=== PATIENT | female | born 1975 | race African-American/Black ===

== ENCOUNTER 2022-07-31 19:32 | Inpatient (IN) | payer MEDICARE ==
[~2022-07-31] VITALS: Ht 152.4 cm; Wt 133.8 kg
[2022-07-31 22:45] LABS: CLARITY URINE CLEAR (CLEAR); COLOR URINE YELLOW (YELLOW); KETONES URINE NEGATIVE (NEGATIVE); LEUKOCYTE ESTERASE URINE 3+ (NEGATIVE); NITRITE URINE NEGATIVE (NEGATIVE); OCCULT BLOOD URINE NEGATIVE (NEGATIVE); PH URINE 7.5 (4.5-8.0); PROTEIN URINE NEGATIVE (NEGATIVE); SPECIFIC GRAVITY URINE 1.007 (1.005-1.030)
[2022-07-31] MEDS ORDERED: CEPHALEXIN 250MG CAPSULE PO ONE (23:00)
[2022-07-31] MEDS: CEPHALEXIN 250MG CAPSULE PO NR (23:47)
[2022-08-01] MEDS: CEPHALEXIN 250MG CAPSULE PO NR (09:00)
[2022-08-01] MEDS ORDERED: ACETAMINOPHEN 325MG TABLET PO ONE (14:30)
[2022-08-01] MEDS ORDERED: CEPHALEXIN 250MG CAPSULE PO ONE (18:15)
[2022-08-02] MEDS ORDERED: HYDROCODONE/ACETAMINOPHEN 5/325MG TABLET PO ONE (05:30)
[2022-08-02] MEDS ORDERED: TOPIRAMATE 100MG TABLET PO STA (11:58)
[2022-08-02] MEDS ORDERED: LORAZEPAM 2MG/ML CPJ IM STA (11:58)
[2022-08-02] MEDS ORDERED: GABAPENTIN 400MG CAPSULE PO ONE (12:00)
[2022-08-02] MEDS ORDERED: ONDANSETRON HCL 4MG/2ML INJ IV PRN (12:15)
[2022-08-02 20:00] VITALS: BP 117/59
[2022-08-02] MEDS: LEVETIRACETAM 500MG TABLET PO SCH (21:00)
[2022-08-02 21:29] VITALS: BP 117/54
[2022-08-03] VITALS: BP 109/51
[2022-08-03] MEDS: GABAPENTIN 300MG CAPSULE PO SCH ×4 (00:45→21:53)
[2022-08-03 04:00] VITALS: BP 120/60
[2022-08-03] MEDS: ACETAMINOPHEN 325MG TABLET PO PRN (06:40)
[2022-08-03 08:00] VITALS: BP 115/77
[2022-08-03] MEDS: LEVETIRACETAM 500MG TABLET PO SCH ×3 (08:53→21:00)
[2022-08-03] MEDS ORDERED: CEFTRIAXONE 1 G PREMIX 50 ML IV SCH (10:15)
[2022-08-03 12:00] VITALS: BP 104/58
[2022-08-03] MEDS ORDERED: KETOROLAC 30MG/ML VIAL IV PRN (12:00)
[2022-08-03] MEDS: CEFTRIAXONE 1,000 MG in DEXTROSE 5% WATER 50 ML IV SCH (14:27)
[2022-08-03 15:55] LABS: BASOPHILS % 0.2 % (0.0-2.0); EOSINOPHILS % 2.1 % (0.0-5.0); HEMATOCRIT. 39.4 % (36.0-48.0); HEMOGLOBIN. 12.2 g/dL (12.0-16.0); LYMPHOCYTES % 25.4 % (20.0-50.0); MEAN CORPUSCULAR HEMOGLOBIN 26.8 pg (28.0-32.0); MEAN CORPUSCULAR VOLUME 86.2 fL (81.0-99.0); MEAN PLATELET VOLUME 11.2 fl (7.4-10.4); NEUTROPHILS % 63.3 % (40.0-76.0); PLATELET 190 x1000/uL (130-400); RED BLOOD CELL COUNT 4.57 mill/uL (4.2-5.4); RED CELL DISTRIBUTION WIDTH 17.2 % (11.6-14.6)
[2022-08-03 16:00] VITALS: BP 106/63
[2022-08-03 16:16] LABS: CHLORIDE 108 mEq/L (98-107)
[2022-08-03 20:00] VITALS: BP 110/60
[2022-08-03] MEDS ORDERED: MEDICATION NOT ON FORMULARY EA (Oxycodone Hcl/Acetaminophen (Oxycodone-Acetaminophen 10- PO PRN (20:00)
[2022-08-03] MEDS ORDERED: TOPI100T37 PO (20:07)
[2022-08-03] MEDS ORDERED: PRIM50TA5 PO (20:07)
[2022-08-03] MEDS ORDERED: DULO20CA18 PO (20:07)
[2022-08-03] MEDS ORDERED: ATOR20TA65 PO (20:07)
[2022-08-03] MEDS ORDERED: GABA800T97 PO (20:07)
[2022-08-03] MEDS ORDERED: DOCU-150 PO (20:07)
[2022-08-03] MEDS ORDERED: APIX2.5T PO (20:07)
[2022-08-03] MEDS ORDERED: OXYC1TAB12 PO (20:07)
[2022-08-03] MEDS ORDERED: NALOXONE HCL 0.4MG/ML VIAL IV PRN (20:45)
[2022-08-03] MEDS: TOPIRAMATE 100MG TABLET PO SCH (21:52)
[2022-08-03] MEDS: OXYCODONE HCL/ACETAMINOPHEN 5/325MG TABLET PO PRN (21:53)
[2022-08-03] MEDS: DOCUSATE SODIUM 100MG CAPSULE PO PRN (22:02)
[2022-08-04] VITALS: BP 99/48
[2022-08-04 04:00] VITALS: BP 94/41
[2022-08-04] MEDS: GABAPENTIN 300MG CAPSULE PO SCH ×3 (06:45→20:42)
[2022-08-04 08:00] VITALS: BP_SYST 92; BP_DIAS 48; BP_DIAS 8
[2022-08-04] MEDS: DULOXETINE HCL 20MG DR CAPSULE PO SCH ×2 (09:00→11:48)
[2022-08-04] MEDS ORDERED: DULOXETINE HCL 20MG DR CAPSULE PO SCH (09:00)
[2022-08-04] MEDS: PRIMIDONE 50MG TABLET PO SCH ×3 (09:00→18:08)
[2022-08-04] MEDS: LEVETIRACETAM 500MG TABLET PO SCH ×2 (09:00→20:43)
[2022-08-04] MEDS: APIXABAN 2.5 MG TABLET PO SCH ×2 (09:09→18:08)
[2022-08-04] MEDS: ATORVASTATIN CALCIUM 20MG TABLET PO SCH (09:09)
[2022-08-04] MEDS: TOPIRAMATE 100MG TABLET PO SCH ×2 (09:09→18:08)
[2022-08-04 12:00] VITALS: BP 104/46
[2022-08-04] MEDS: CEFTRIAXONE 1,000 MG in DEXTROSE 5% WATER 50 ML IV SCH (14:24)
[2022-08-04 16:00] VITALS: BP 104/46
[2022-08-04 20:00] VITALS: BP 116/51
[2022-08-04] MEDS: OXYCODONE HCL/ACETAMINOPHEN 5/325MG TABLET PO PRN (20:42)
[2022-08-05] VITALS: BP 98/48
[2022-08-05 04:00] VITALS: BP 105/58
[2022-08-05] MEDS: GABAPENTIN 300MG CAPSULE PO SCH ×3 (05:50→21:03)
[2022-08-05 08:00] VITALS: BP 125/72
[2022-08-05] MEDS ORDERED: LIDOCAINE HCL 1% 10 MG/ML 10ML VIAL ONE (09:51)
[2022-08-05] MEDS: DULOXETINE HCL 20MG DR CAPSULE PO SCH (10:11)
[2022-08-05] MEDS: TOPIRAMATE 100MG TABLET PO SCH ×2 (10:11→16:11)
[2022-08-05] MEDS: PRIMIDONE 50MG TABLET PO SCH ×2 (10:11→16:11)
[2022-08-05] MEDS: LEVETIRACETAM 500MG TABLET PO SCH ×2 (10:11→21:00)
[2022-08-05] MEDS: ATORVASTATIN CALCIUM 20MG TABLET PO SCH (10:13)
[2022-08-05] MEDS: APIXABAN 2.5 MG TABLET PO SCH ×2 (10:13→16:11)
[2022-08-05 12:00] VITALS: BP 110/52
[2022-08-05] MEDS: CEFTRIAXONE 1,000 MG in DEXTROSE 5% WATER 50 ML IV SCH (12:23)
[2022-08-05 16:00] VITALS: BP 96/60
[2022-08-05 20:00] VITALS: BP 99/48
[2022-08-05 22:03] LABS: BASOPHILS % 0.2 % (0.0-2.0); EOSINOPHILS % 2.9 % (0.0-5.0); HEMATOCRIT. 33.1 % (36.0-48.0); HEMOGLOBIN. 10.2 g/dL (12.0-16.0); LYMPHOCYTES % 31.5 % (20.0-50.0); MEAN CORPUSCULAR HEMOGLOBIN 26.9 pg (28.0-32.0); MEAN CORPUSCULAR VOLUME 87.7 fL (81.0-99.0); MEAN PLATELET VOLUME 11.3 fl (7.4-10.4); MONOCYTES % 10.8 % (2.0-8.0); NEUTROPHILS % 54.6 % (40.0-76.0); PLATELET 163 x1000/uL (130-400); RED BLOOD CELL COUNT 3.78 mill/uL (4.2-5.4); RED CELL DISTRIBUTION WIDTH 17.3 % (11.6-14.6)
[2022-08-05 22:07] LABS: CHLORIDE 105 mEq/L (98-107)
[2022-08-06] VITALS: BP 110/51
[2022-08-06 04:00] VITALS: BP 90/45
[2022-08-06] MEDS: GABAPENTIN 300MG CAPSULE PO SCH ×3 (06:00→21:29)
[2022-08-06 08:00] VITALS: BP 89/43
[2022-08-06] MEDS: LEVETIRACETAM 500MG TABLET PO SCH ×2 (09:00→21:29)
[2022-08-06] MEDS: ATORVASTATIN CALCIUM 20MG TABLET PO SCH (10:02)
[2022-08-06] MEDS: PRIMIDONE 50MG TABLET PO SCH ×2 (10:02→17:00)
[2022-08-06] MEDS: OXYCODONE HCL/ACETAMINOPHEN 5/325MG TABLET PO PRN ×2 (10:03→22:30)
[2022-08-06] MEDS: DULOXETINE HCL 20MG DR CAPSULE PO SCH (10:03)
[2022-08-06] MEDS: APIXABAN 2.5 MG TABLET PO SCH ×2 (10:03→17:00)
[2022-08-06] MEDS: TOPIRAMATE 100MG TABLET PO SCH ×2 (10:11→17:00)
[2022-08-06 12:00] VITALS: BP 96/48
[2022-08-06] MEDS: CEFTRIAXONE 1,000 MG in DEXTROSE 5% WATER 50 ML IV SCH (13:59)
[2022-08-06 14:40] VITALS: BP 109/61
[2022-08-06 15:25] LABS: BASOPHILS % 0.4 % (0.0-2.0); EOSINOPHILS % 3.5 % (0.0-5.0); HEMATOCRIT. 33.8 % (36.0-48.0); HEMOGLOBIN. 10.5 g/dL (12.0-16.0); MEAN CORPUSCULAR HEMOGLOBIN 26.7 pg (28.0-32.0); MEAN CORPUSCULAR VOLUME 85.8 fL (81.0-99.0); MEAN PLATELET VOLUME 11.1 fl (7.4-10.4); MONOCYTES % 14.6 % (2.0-8.0); NEUTROPHILS % 40.5 % (40.0-76.0); PLATELET 154 x1000/uL (130-400); RED BLOOD CELL COUNT 3.94 mill/uL (4.2-5.4); RED CELL DISTRIBUTION WIDTH 16.9 % (11.6-14.6)
[2022-08-06 15:35] LABS: CHLORIDE 106 mEq/L (98-107)
[2022-08-06 20:00] VITALS: BP 148/79
[2022-08-07] VITALS: BP 143/86
[2022-08-07] MEDS: GABAPENTIN 300MG CAPSULE PO SCH ×4 (05:40→21:46)
[2022-08-07 08:00] VITALS: BP 108/56
[2022-08-07] MEDS: PRIMIDONE 50MG TABLET PO SCH ×2 (08:23→16:57)
[2022-08-07] MEDS: DULOXETINE HCL 20MG DR CAPSULE PO SCH ×2 (08:23→08:35)
[2022-08-07] MEDS: DOCUSATE SODIUM 100MG CAPSULE PO PRN (08:23)
[2022-08-07] MEDS: LEVETIRACETAM 500MG TABLET PO SCH ×3 (08:23→21:43)
[2022-08-07] MEDS: TOPIRAMATE 100MG TABLET PO SCH ×2 (08:23→16:57)
[2022-08-07] MEDS: ATORVASTATIN CALCIUM 20MG TABLET PO SCH (08:23)
[2022-08-07] MEDS: APIXABAN 2.5 MG TABLET PO SCH ×2 (08:26→16:57)
[2022-08-07 12:00] VITALS: BP 109/57
[2022-08-07] MEDS: CEFTRIAXONE 1,000 MG in DEXTROSE 5% WATER 50 ML IV SCH (12:58)
[2022-08-07] MEDS: OXYCODONE HCL/ACETAMINOPHEN 5/325MG TABLET PO PRN ×2 (12:59→23:13)
[2022-08-07 16:00] VITALS: BP 108/59
[2022-08-07 20:00] VITALS: BP 112/52
[2022-08-08] VITALS: BP 102/55
[2022-08-08 04:00] VITALS: BP 105/58
[2022-08-08] MEDS: DOCUSATE SODIUM 100MG CAPSULE PO PRN (08:43)
[2022-08-08] MEDS: TOPIRAMATE 100MG TABLET PO SCH ×2 (08:44→19:48)
[2022-08-08] MEDS: APIXABAN 2.5 MG TABLET PO SCH ×2 (08:44→19:48)
[2022-08-08] MEDS: DULOXETINE HCL 20MG DR CAPSULE PO SCH (08:44)
[2022-08-08] MEDS: OXYCODONE HCL/ACETAMINOPHEN 5/325MG TABLET PO PRN (08:44)
[2022-08-08] MEDS: ATORVASTATIN CALCIUM 20MG TABLET PO SCH (08:44)
[2022-08-08] MEDS: GABAPENTIN 300MG CAPSULE PO SCH ×3 (08:44→21:32)
[2022-08-08] MEDS: PRIMIDONE 50MG TABLET PO SCH ×2 (08:44→19:48)
[2022-08-08] MEDS: CEFTRIAXONE 1,000 MG in DEXTROSE 5% WATER 50 ML IV SCH (12:38)
[2022-08-08] MEDS: DIPHENHYDRAMINE 50MG CAPSULE PO PRN ×2 (15:12→21:36)
[2022-08-08 21:52] VITALS: BP 116/59
[2022-08-09] MEDS: GABAPENTIN 300MG CAPSULE PO SCH ×3 (06:00→22:09)
[2022-08-09 08:00] VITALS: BP 129/79
[2022-08-09] MEDS: DULOXETINE HCL 20MG DR CAPSULE PO SCH (09:53)
[2022-08-09] MEDS: APIXABAN 2.5 MG TABLET PO SCH ×2 (09:54→17:34)
[2022-08-09] MEDS: ATORVASTATIN CALCIUM 20MG TABLET PO SCH (09:54)
[2022-08-09] MEDS: PRIMIDONE 50MG TABLET PO SCH (09:54)
[2022-08-09] MEDS: TOPIRAMATE 100MG TABLET PO SCH ×2 (09:54→17:34)
[2022-08-09 12:00] VITALS: BP 125/78
[2022-08-09] MEDS ORDERED: NALOXONE HCL 0.4MG/ML VIAL IV PRN (14:45)
[2022-08-09 16:00] VITALS: BP 127/61
[2022-08-09] MEDS ORDERED: ZOLP5TAB8 PO (17:54)
[2022-08-09] MEDS ORDERED: DIPH25TA23 PO (17:56)
[2022-08-09] MEDS ORDERED: ALPR2TAB97 PO (17:56)
[2022-08-09] MEDS ORDERED: MORP15TA54 PO (17:57)
[2022-08-09] MEDS ORDERED: POLY119P3 PO (17:58)
[2022-08-09] MEDS ORDERED: LUBI24CA5 PO (18:00)
[2022-08-09] MEDS: OXYCODONE HCL/ACETAMINOPHEN 5/325MG TABLET PO PRN (18:40)
[2022-08-09 20:00] VITALS: BP 115/67
[2022-08-09] MEDS: DIPHENHYDRAMINE 50MG CAPSULE PO PRN (23:25)
[2022-08-10] VITALS: BP 105/40
[2022-08-10] MEDS: OXYCODONE HCL/ACETAMINOPHEN 5/325MG TABLET PO PRN ×3 (03:11→22:16)
[2022-08-10 04:00] VITALS: BP 111/59
[2022-08-10] MEDS: GABAPENTIN 300MG CAPSULE PO SCH ×3 (05:31→22:12)
[2022-08-10 08:00] VITALS: BP 115/60
[2022-08-10] MEDS: DULOXETINE HCL 20MG DR CAPSULE PO SCH ×2 (09:00→09:14)
[2022-08-10] MEDS: APIXABAN 2.5 MG TABLET PO SCH ×2 (09:14→17:50)
[2022-08-10] MEDS: TOPIRAMATE 100MG TABLET PO SCH ×2 (09:14→17:50)
[2022-08-10] MEDS: ATORVASTATIN CALCIUM 20MG TABLET PO SCH (09:14)
[2022-08-10 12:00] VITALS: BP 118/50
[2022-08-10 16:00] VITALS: BP 118/67
[2022-08-10 20:00] VITALS: BP 110/59
[2022-08-11] VITALS: BP 122/72
[2022-08-11 04:00] VITALS: BP 103/57
[2022-08-11] MEDS: GABAPENTIN 300MG CAPSULE PO SCH ×3 (06:41→21:25)
[2022-08-11] MEDS: ATORVASTATIN CALCIUM 20MG TABLET PO SCH (09:11)
[2022-08-11] MEDS: TOPIRAMATE 100MG TABLET PO SCH ×2 (09:11→17:46)
[2022-08-11] MEDS: APIXABAN 2.5 MG TABLET PO SCH ×2 (09:11→17:46)
[2022-08-11] MEDS: DULOXETINE HCL 20MG DR CAPSULE PO SCH (09:11)
[2022-08-11 09:59] VITALS: BP 104/56
[2022-08-11 12:00] VITALS: BP 118/71
[2022-08-11] MEDS: OXYCODONE HCL/ACETAMINOPHEN 5/325MG TABLET PO PRN ×2 (13:53→20:57)
[2022-08-11 16:00] VITALS: BP 115/65
[2022-08-11 20:00] VITALS: BP 109/61
[2022-08-12] MEDS: GABAPENTIN 300MG CAPSULE PO SCH ×3 (06:00→13:43)
[2022-08-12 08:02] VITALS: BP 98/53
[2022-08-12] MEDS: DULOXETINE HCL 20MG DR CAPSULE PO SCH (09:15)
[2022-08-12] MEDS: ATORVASTATIN CALCIUM 20MG TABLET PO SCH (09:15)
[2022-08-12] MEDS: TOPIRAMATE 100MG TABLET PO SCH ×2 (09:15→17:50)
[2022-08-12] MEDS: APIXABAN 2.5 MG TABLET PO SCH ×2 (09:15→17:50)
[2022-08-12 12:30] VITALS: BP 102/55
[2022-08-12 16:21] VITALS: BP 100/48
[2022-08-12] MEDS: GABAPENTIN 400MG CAPSULE PO SCH ×2 (17:55→21:47)
[2022-08-12] MEDS: POLYETHYLENE GLYCOL 3350 (17GM) 1 DOSE PACK PO SCH (17:56)
[2022-08-12] MEDS: OXYCODONE HCL/ACETAMINOPHEN 5/325MG TABLET PO PRN (18:01)
[2022-08-12 20:00] VITALS: BP 107/57
[2022-08-12] MEDS: ZOLPIDEM TARTRATE 5MG TABLET PO PRN (21:54)
[2022-08-13] MEDS: GABAPENTIN 400MG CAPSULE PO SCH ×3 (06:47→21:57)
[2022-08-13] MEDS: OXYCODONE HCL/ACETAMINOPHEN 5/325MG TABLET PO PRN ×3 (07:17→21:59)
[2022-08-13] MEDS: ATORVASTATIN CALCIUM 20MG TABLET PO SCH (08:48)
[2022-08-13] MEDS: POLYETHYLENE GLYCOL 3350 (17GM) 1 DOSE PACK PO SCH (08:48)
[2022-08-13] MEDS: TOPIRAMATE 100MG TABLET PO SCH ×2 (08:48→17:45)
[2022-08-13] MEDS: APIXABAN 2.5 MG TABLET PO SCH ×2 (08:48→17:45)
[2022-08-13] MEDS ORDERED: DULOXETINE HCL 30MG DR CAPSULE PO SCH (09:00)
[2022-08-13] MEDS: ALPRAZOLAM 0.5 MG TABLET PO PRN (09:40)
[2022-08-13] MEDS: DULOXETINE HCL 30MG DR CAPSULE PO SCH (09:41)
[2022-08-13 12:00] VITALS: BP 105/70
[2022-08-13 16:00] VITALS: BP 119/56
[2022-08-13 20:00] VITALS: BP 111/42
[2022-08-13] MEDS: ZOLPIDEM TARTRATE 5MG TABLET PO PRN (21:59)
[2022-08-14] VITALS: BP 105/50
[2022-08-14 04:00] VITALS: BP 99/53
[2022-08-14] MEDS: GABAPENTIN 400MG CAPSULE PO SCH ×3 (06:24→22:48)
[2022-08-14] MEDS: OXYCODONE HCL/ACETAMINOPHEN 5/325MG TABLET PO PRN ×2 (06:53→15:13)
[2022-08-14 08:00] VITALS: BP 104/39
[2022-08-14 08:32] LABS: BASOPHILS % 0.2 % (0.0-2.0); EOSINOPHILS % 2.2 % (0.0-5.0); HEMATOCRIT. 34.7 % (36.0-48.0); LYMPHOCYTES % 33.7 % (20.0-50.0); MEAN CORPUSCULAR HEMOGLOBIN 27.1 pg (28.0-32.0); MEAN CORPUSCULAR VOLUME 85.7 fL (81.0-99.0); MEAN PLATELET VOLUME 11.3 fl (7.4-10.4); MONOCYTES % 11.2 % (2.0-8.0); NEUTROPHILS % 52.7 % (40.0-76.0); PLATELET 194 x1000/uL (130-400); RED BLOOD CELL COUNT 4.05 mill/uL (4.2-5.4); RED CELL DISTRIBUTION WIDTH 17.3 % (11.6-14.6)
[2022-08-14 08:49] LABS: CHLORIDE 108 mEq/L (98-107)
[2022-08-14] MEDS: ATORVASTATIN CALCIUM 20MG TABLET PO SCH (10:02)
[2022-08-14] MEDS: DULOXETINE HCL 30MG DR CAPSULE PO SCH (10:02)
[2022-08-14] MEDS: APIXABAN 2.5 MG TABLET PO SCH ×2 (10:02→16:57)
[2022-08-14] MEDS: POLYETHYLENE GLYCOL 3350 (17GM) 1 DOSE PACK PO SCH (10:02)
[2022-08-14] MEDS: TOPIRAMATE 100MG TABLET PO SCH ×2 (10:02→16:57)
[2022-08-14 12:00] VITALS: BP 114/68
[2022-08-14] MEDS ORDERED: NALOXONE HCL 0.4MG/ML VIAL IV PRN (15:00)
[2022-08-14] MEDS: ALPRAZOLAM 0.5 MG TABLET PO PRN (15:13)
[2022-08-14 16:00] VITALS: BP 133/73
[2022-08-14] MEDS ORDERED: VANCOMYCIN 1,750 MG in DEXT 5% WATER 500 ML IV NR (17:30)
[2022-08-14 20:00] VITALS: BP 112/63
[2022-08-15 04:00] VITALS: BP 111/62
[2022-08-15] MEDS: GABAPENTIN 400MG CAPSULE PO SCH ×3 (06:34→22:52)
[2022-08-15] MEDS: VANCOMYCIN 1G PREMIX 200 ML IV SCH ×3 (06:34→22:50)
[2022-08-15] MEDS: OXYCODONE HCL/ACETAMINOPHEN 5/325MG TABLET PO PRN ×3 (06:47→23:03)
[2022-08-15 08:00] VITALS: BP 102/55
[2022-08-15] MEDS: DOCUSATE SODIUM 100MG CAPSULE PO PRN (10:07)
[2022-08-15] MEDS: ALPRAZOLAM 0.5 MG TABLET PO PRN (10:07)
[2022-08-15] MEDS: TOPIRAMATE 100MG TABLET PO SCH ×2 (10:07→17:00)
[2022-08-15] MEDS: POLYETHYLENE GLYCOL 3350 (17GM) 1 DOSE PACK PO SCH (10:07)
[2022-08-15] MEDS: DULOXETINE HCL 30MG DR CAPSULE PO SCH (10:07)
[2022-08-15] MEDS: ATORVASTATIN CALCIUM 20MG TABLET PO SCH (10:07)
[2022-08-15] MEDS: APIXABAN 2.5 MG TABLET PO SCH ×2 (10:07→17:00)
[2022-08-15] MEDS: ACETAMINOPHEN 325MG TABLET PO PRN (11:41)
[2022-08-15 12:00] VITALS: BP 142/86
[2022-08-15 16:09] VITALS: BP 113/57
[2022-08-15 20:00] VITALS: BP 114/73
[2022-08-15] MEDS: ZOLPIDEM TARTRATE 5MG TABLET PO PRN (23:02)
[2022-08-16] VITALS: BP 122/67
[2022-08-16 04:00] VITALS: BP 98/44
[2022-08-16] MEDS: GABAPENTIN 400MG CAPSULE PO SCH ×3 (06:00→21:12)
[2022-08-16 08:05] LABS: CHLORIDE 109 mEq/L (98-107)
[2022-08-16] MEDS: VANCOMYCIN 1G PREMIX 200 ML IV SCH ×2 (09:35→21:11)
[2022-08-16] MEDS: ATORVASTATIN CALCIUM 20MG TABLET PO SCH (09:36)
[2022-08-16] MEDS: APIXABAN 2.5 MG TABLET PO SCH ×2 (09:36→18:06)
[2022-08-16] MEDS: DULOXETINE HCL 30MG DR CAPSULE PO SCH (09:36)
[2022-08-16] MEDS: TOPIRAMATE 100MG TABLET PO SCH ×2 (09:36→18:06)
[2022-08-16] MEDS: POLYETHYLENE GLYCOL 3350 (17GM) 1 DOSE PACK PO SCH (09:36)
[2022-08-16 12:00] VITALS: BP 132/80
[2022-08-16] MEDS: DOCUSATE SODIUM 100MG CAPSULE PO PRN (13:56)
[2022-08-16 16:00] VITALS: BP 110/61
[2022-08-16] MEDS: OXYCODONE HCL/ACETAMINOPHEN 5/325MG TABLET PO PRN (18:14)
[2022-08-16 20:00] VITALS: BP 138/66
[2022-08-16] MEDS: ZOLPIDEM TARTRATE 5MG TABLET PO PRN (23:10)
[2022-08-17] VITALS: BP 109/61
[2022-08-17 04:00] VITALS: BP 105/63
[2022-08-17 08:00] VITALS: BP 139/76
[2022-08-17] MEDS: GABAPENTIN 400MG CAPSULE PO SCH ×3 (09:05→21:26)
[2022-08-17] MEDS: VANCOMYCIN 1G PREMIX 200 ML IV SCH ×2 (09:05→22:37)
[2022-08-17] MEDS: ATORVASTATIN CALCIUM 20MG TABLET PO SCH (09:05)
[2022-08-17] MEDS: TOPIRAMATE 100MG TABLET PO SCH ×2 (09:06→18:10)
[2022-08-17] MEDS: DULOXETINE HCL 30MG DR CAPSULE PO SCH (09:06)
[2022-08-17] MEDS: APIXABAN 2.5 MG TABLET PO SCH ×2 (09:06→18:10)
[2022-08-17] MEDS: OXYCODONE HCL/ACETAMINOPHEN 5/325MG TABLET PO PRN ×2 (09:07→18:11)
[2022-08-17] MEDS: POLYETHYLENE GLYCOL 3350 (17GM) 1 DOSE PACK PO SCH (09:07)
[2022-08-17 12:00] VITALS: BP 125/57
[2022-08-17 16:00] VITALS: BP 115/59
[2022-08-17 20:00] VITALS: BP 112/41
[2022-08-17] MEDS: ZOLPIDEM TARTRATE 5MG TABLET PO PRN (22:37)
[2022-08-18] VITALS: BP 106/52
[2022-08-18] MEDS: OXYCODONE HCL/ACETAMINOPHEN 5/325MG TABLET PO PRN ×4 (00:15→20:23)
[2022-08-18] MEDS: GABAPENTIN 400MG CAPSULE PO SCH ×3 (05:31→20:23)
[2022-08-18] MEDS: APIXABAN 2.5 MG TABLET PO SCH ×2 (10:13→18:04)
[2022-08-18] MEDS: DULOXETINE HCL 30MG DR CAPSULE PO SCH (10:13)
[2022-08-18] MEDS: VANCOMYCIN 1G PREMIX 200 ML IV SCH ×2 (10:13→21:07)
[2022-08-18] MEDS: POLYETHYLENE GLYCOL 3350 (17GM) 1 DOSE PACK PO SCH (10:14)
[2022-08-18] MEDS: TOPIRAMATE 100MG TABLET PO SCH ×2 (10:14→18:03)
[2022-08-18] MEDS: ATORVASTATIN CALCIUM 20MG TABLET PO SCH (10:14)
[2022-08-18 12:00] VITALS: BP 141/78
[2022-08-18 16:00] VITALS: BP 141/93
[2022-08-18] MEDS: ZOLPIDEM TARTRATE 5MG TABLET PO PRN (20:30)
[2022-08-19] VITALS: BP 105/56
[2022-08-19] MEDS: OXYCODONE HCL/ACETAMINOPHEN 5/325MG TABLET PO PRN ×3 (05:48→16:09)
[2022-08-19] MEDS: GABAPENTIN 400MG CAPSULE PO SCH ×3 (06:25→22:25)
[2022-08-19 08:00] VITALS: BP 133/68
[2022-08-19] MEDS: TOPIRAMATE 100MG TABLET PO SCH ×2 (09:08→18:48)
[2022-08-19] MEDS: DULOXETINE HCL 30MG DR CAPSULE PO SCH (09:08)
[2022-08-19] MEDS: ATORVASTATIN CALCIUM 20MG TABLET PO SCH ×2 (09:08→22:26)
[2022-08-19] MEDS: VANCOMYCIN 1G PREMIX 200 ML IV SCH (09:08)
[2022-08-19] MEDS: DOCUSATE SODIUM 100MG CAPSULE PO PRN (09:09)
[2022-08-19] MEDS: POLYETHYLENE GLYCOL 3350 (17GM) 1 DOSE PACK PO SCH (09:09)
[2022-08-19 12:00] VITALS: BP 139/78
[2022-08-19] MEDS ORDERED: CAPSAICIN 0.025% CREAM 60GM TOP PRN (12:00)
[2022-08-19] MEDS ORDERED: LIDOCAINE HCL 1% 10 MG/ML 10ML VIAL ONE (12:49)
[2022-08-19] MEDS ORDERED: BACLOFEN 10MG TABLET PO SCH (14:00)
[2022-08-19 16:00] VITALS: BP 132/77
[2022-08-19] MEDS: APIXABAN 2.5 MG TABLET PO SCH (18:48)
[2022-08-19 20:00] VITALS: BP 142/77
[2022-08-19] MEDS: BACLOFEN 10MG TABLET PO SCH (20:12)
[2022-08-19] MEDS ORDERED: PRIMIDONE 50MG TABLET PO SCH (21:00)
[2022-08-19] MEDS: LAMOTRIGINE 25MG TABLET PO SCH (21:15)
[2022-08-19] MEDS: ZOLPIDEM TARTRATE 5MG TABLET PO PRN (22:21)
[2022-08-19] MEDS: MORPHINE SULFATE 15MG TABLET SR PO SCH (22:24)
[2022-08-19] MEDS: PRIMIDONE 50MG TABLET PO SCH (22:26)
[2022-08-19] MEDS: SULFAMETHOXAZOLE/TRIMETHOPRIM 800/160MG TABLET PO SCH (22:27)
[2022-08-20] MEDS: BACLOFEN 10MG TABLET PO SCH ×5 (06:21→20:44)
[2022-08-20] MEDS: GABAPENTIN 400MG CAPSULE PO SCH ×5 (06:21→22:40)
[2022-08-20 08:00] VITALS: BP 102/54
[2022-08-20] MEDS: MORPHINE SULFATE 15MG TABLET SR PO SCH ×2 (09:00→20:52)
[2022-08-20] MEDS: APIXABAN 2.5 MG TABLET PO SCH ×2 (10:06→18:39)
[2022-08-20] MEDS: LAMOTRIGINE 25MG TABLET PO SCH (10:07)
[2022-08-20] MEDS: DULOXETINE HCL 30MG DR CAPSULE PO SCH (10:07)
[2022-08-20] MEDS: TOPIRAMATE 100MG TABLET PO SCH ×2 (10:08→18:39)
[2022-08-20] MEDS: PRIMIDONE 50MG TABLET PO SCH ×2 (10:10→20:45)
[2022-08-20] MEDS: SULFAMETHOXAZOLE/TRIMETHOPRIM 800/160MG TABLET PO SCH ×2 (10:13→20:43)
[2022-08-20] MEDS: POLYETHYLENE GLYCOL 3350 (17GM) 1 DOSE PACK PO SCH (10:13)
[2022-08-20] MEDS: OXYCODONE HCL/ACETAMINOPHEN 5/325MG TABLET PO PRN ×2 (10:20→18:56)
[2022-08-20 12:00] VITALS: BP 108/65
[2022-08-20 16:00] VITALS: BP 135/72
[2022-08-20 17:35] VITALS: BP 117/78
[2022-08-20] MEDS: LORAZEPAM 2MG/ML CPJ IV PRN (17:57)
[2022-08-20] MEDS: ZOLPIDEM TARTRATE 5MG TABLET PO PRN (22:52)
[2022-08-21] MEDS: BACLOFEN 10MG TABLET PO SCH ×3 (03:39→22:03)
[2022-08-21] MEDS: GABAPENTIN 400MG CAPSULE PO SCH ×3 (06:25→22:04)
[2022-08-21] MEDS: OXYCODONE HCL/ACETAMINOPHEN 5/325MG TABLET PO PRN ×2 (06:35→17:14)
[2022-08-21 08:00] VITALS: BP 103/56
[2022-08-21 08:12] LABS: HEMATOCRIT 35.4 % (36.0-48.0); HEMOGLOBIN 11.1 g/dL (12.0-16.0); MEAN CORPUSCULAR HEMOGLOBIN 26.9 pg (28.0-32.0); MEAN CORPUSCULAR VOLUME 85.6 fL (81.0-99.0); PLATELET 195 x1000/uL (130-400); RED BLOOD CELL COUNT 4.13 mill/uL (4.2-5.4); RED CELL DISTRIBUTION WIDTH 17.7 % (11.6-14.6)
[2022-08-21 08:23] LABS: CHLORIDE 103 mEq/L (98-107)
[2022-08-21] MEDS: LAMOTRIGINE 25MG TABLET PO SCH (09:00)
[2022-08-21] MEDS: POLYETHYLENE GLYCOL 3350 (17GM) 1 DOSE PACK PO SCH (10:42)
[2022-08-21] MEDS: DULOXETINE HCL 30MG DR CAPSULE PO SCH (10:42)
[2022-08-21] MEDS: PRIMIDONE 50MG TABLET PO SCH ×2 (10:43→22:04)
[2022-08-21] MEDS: SULFAMETHOXAZOLE/TRIMETHOPRIM 800/160MG TABLET PO SCH ×2 (10:43→22:04)
[2022-08-21] MEDS: ATORVASTATIN CALCIUM 20MG TABLET PO SCH (10:43)
[2022-08-21] MEDS: TOPIRAMATE 100MG TABLET PO SCH ×2 (10:44→17:14)
[2022-08-21] MEDS: APIXABAN 2.5 MG TABLET PO SCH ×2 (10:44→17:14)
[2022-08-21] MEDS: MORPHINE SULFATE 15MG TABLET SR PO SCH ×2 (10:48→22:09)
[2022-08-21 12:00] VITALS: BP 104/68
[2022-08-21 16:00] VITALS: BP 119/73
[2022-08-21] MEDS: LORAZEPAM 2MG/ML CPJ IV PRN (17:06)
[2022-08-21] MEDS: ZOLPIDEM TARTRATE 5MG TABLET PO PRN (22:19)
[2022-08-22] MEDS: BACLOFEN 10MG TABLET PO SCH ×3 (04:00→20:36)
[2022-08-22] MEDS: GABAPENTIN 400MG CAPSULE PO SCH ×3 (06:07→21:11)
[2022-08-22 06:20] VITALS: BP 103/58
[2022-08-22] MEDS: OXYCODONE HCL/ACETAMINOPHEN 5/325MG TABLET PO PRN ×2 (06:24→14:39)
[2022-08-22] MEDS: MORPHINE SULFATE 15MG TABLET SR PO SCH ×2 (09:00→20:41)
[2022-08-22] MEDS: TOPIRAMATE 100MG TABLET PO SCH ×2 (09:00→17:41)
[2022-08-22] MEDS: PRIMIDONE 50MG TABLET PO SCH ×2 (09:00→21:47)
[2022-08-22] MEDS: LAMOTRIGINE 25MG TABLET PO SCH (09:00)
[2022-08-22] MEDS: SULFAMETHOXAZOLE/TRIMETHOPRIM 800/160MG TABLET PO SCH ×2 (09:00→20:36)
[2022-08-22] MEDS: DULOXETINE HCL 30MG DR CAPSULE PO SCH (09:00)
[2022-08-22] MEDS: POLYETHYLENE GLYCOL 3350 (17GM) 1 DOSE PACK PO SCH (09:00)
[2022-08-22] MEDS: ATORVASTATIN CALCIUM 20MG TABLET PO SCH (09:00)
[2022-08-22] MEDS: APIXABAN 2.5 MG TABLET PO SCH ×2 (09:00→17:41)
[2022-08-22 11:04] VITALS: BP 109/60
[2022-08-22 12:33] VITALS: BP 130/72
[2022-08-22 16:26] VITALS: BP 120/63
[2022-08-22 20:00] VITALS: BP 106/62
[2022-08-22] MEDS: ZOLPIDEM TARTRATE 5MG TABLET PO PRN (20:52)
[2022-08-23] VITALS: BP 101/54
[2022-08-23] MEDS: OXYCODONE HCL/ACETAMINOPHEN 5/325MG TABLET PO PRN ×3 (04:53→18:30)
[2022-08-23] MEDS: GABAPENTIN 400MG CAPSULE PO SCH ×3 (04:53→20:36)
[2022-08-23] MEDS: BACLOFEN 10MG TABLET PO SCH ×3 (04:53→20:35)
[2022-08-23 08:00] VITALS: BP 108/60
[2022-08-23] MEDS: ATORVASTATIN CALCIUM 20MG TABLET PO SCH (08:46)
[2022-08-23] MEDS: PRIMIDONE 50MG TABLET PO SCH ×2 (08:46→20:36)
[2022-08-23] MEDS: SULFAMETHOXAZOLE/TRIMETHOPRIM 800/160MG TABLET PO SCH ×2 (08:46→20:36)
[2022-08-23] MEDS: DULOXETINE HCL 30MG DR CAPSULE PO SCH (08:46)
[2022-08-23] MEDS: APIXABAN 2.5 MG TABLET PO SCH ×2 (08:46→17:42)
[2022-08-23] MEDS: TOPIRAMATE 100MG TABLET PO SCH ×2 (08:46→17:43)
[2022-08-23] MEDS: LAMOTRIGINE 25MG TABLET PO SCH (08:47)
[2022-08-23] MEDS: MORPHINE SULFATE 15MG TABLET SR PO SCH ×2 (08:48→20:35)
[2022-08-23] MEDS: POLYETHYLENE GLYCOL 3350 (17GM) 1 DOSE PACK PO SCH (08:54)
[2022-08-23 12:00] VITALS: BP 100/58
[2022-08-23 16:00] VITALS: BP_SYST 113; BP_SYST 126; BP_DIAS 65; BP_DIAS 80
[2022-08-23 20:00] VITALS: BP 103/59
[2022-08-24] MEDS: OXYCODONE HCL/ACETAMINOPHEN 5/325MG TABLET PO PRN (03:48)
[2022-08-24] MEDS: BACLOFEN 10MG TABLET PO SCH ×3 (03:48→21:27)
[2022-08-24] MEDS: GABAPENTIN 400MG CAPSULE PO SCH ×3 (07:01→22:00)
[2022-08-24 08:00] VITALS: BP 114/73
[2022-08-24] MEDS: POLYETHYLENE GLYCOL 3350 (17GM) 1 DOSE PACK PO SCH (09:00)
[2022-08-24] MEDS: SULFAMETHOXAZOLE/TRIMETHOPRIM 800/160MG TABLET PO SCH ×2 (10:09→21:26)
[2022-08-24] MEDS: DULOXETINE HCL 30MG DR CAPSULE PO SCH (10:09)
[2022-08-24] MEDS: FUROSEMIDE 20MG TABLET PO SCH ×2 (10:09→17:00)
[2022-08-24] MEDS: LAMOTRIGINE 25MG TABLET PO SCH (10:09)
[2022-08-24] MEDS: TOPIRAMATE 100MG TABLET PO SCH ×2 (10:09→21:27)
[2022-08-24] MEDS: APIXABAN 2.5 MG TABLET PO SCH ×2 (10:09→21:27)
[2022-08-24] MEDS: PRIMIDONE 50MG TABLET PO SCH ×2 (10:09→21:27)
[2022-08-24] MEDS: ATORVASTATIN CALCIUM 20MG TABLET PO SCH (10:09)
[2022-08-24] MEDS: MORPHINE SULFATE 15MG TABLET SR PO SCH ×2 (10:10→20:43)
[2022-08-24 12:00] VITALS: BP 165/71
[2022-08-24] MEDS ORDERED: SUCCINYLCHOLINE CHLORIDE 200MG/10ML IV ONE (15:59)
[2022-08-24] MEDS ORDERED: MIDAZOLAM HCL 2 MG/2 ML VIAL ONE (15:59)
[2022-08-24 16:00] VITALS: BP 137/81
[2022-08-24] MEDS ORDERED: KETAMINE HCL 50 MG/ML 10ML ONE (16:01)
[2022-08-24] MEDS ORDERED: PROPOFOL 200MG/20ML VIAL IV ONE (17:12)
[2022-08-24] MEDS ORDERED: LORAZEPAM 2MG/ML CPJ IV NR (18:28)
[2022-08-24 20:00] VITALS: BP 132/76
[2022-08-25] VITALS: BP 93/48
[2022-08-25] MEDS: BACLOFEN 10MG TABLET PO SCH ×3 (03:27→21:14)
[2022-08-25] MEDS ORDERED: MORPHINE SULFATE 15MG TABLET SR PO SCH (03:45)
[2022-08-25 04:00] VITALS: BP 110/61
[2022-08-25] MEDS ORDERED: LORAZEPAM 1MG TABLET PO PRN (04:30)
[2022-08-25] MEDS: GABAPENTIN 400MG CAPSULE PO SCH ×3 (05:07→21:13)
[2022-08-25 08:00] VITALS: BP 100/52
[2022-08-25] MEDS: POLYETHYLENE GLYCOL 3350 (17GM) 1 DOSE PACK PO SCH (09:00)
[2022-08-25 12:00] VITALS: BP 100/54
[2022-08-25] MEDS: FUROSEMIDE 20MG TABLET PO SCH ×2 (12:55→19:15)
[2022-08-25] MEDS: DULOXETINE HCL 30MG DR CAPSULE PO SCH (12:55)
[2022-08-25] MEDS: SULFAMETHOXAZOLE/TRIMETHOPRIM 800/160MG TABLET PO SCH ×2 (12:55→21:13)
[2022-08-25] MEDS: LAMOTRIGINE 25MG TABLET PO SCH (12:55)
[2022-08-25] MEDS: APIXABAN 2.5 MG TABLET PO SCH ×2 (12:56→19:15)
[2022-08-25] MEDS: TOPIRAMATE 100MG TABLET PO SCH ×2 (12:56→19:15)
[2022-08-25] MEDS: MORPHINE SULFATE 15MG TABLET SR PO SCH ×2 (12:58→21:15)
[2022-08-25 16:00] VITALS: BP 100/56
[2022-08-25 20:00] VITALS: BP 118/62
[2022-08-25] MEDS: ATORVASTATIN CALCIUM 20MG TABLET PO SCH (21:14)
[2022-08-26] MEDS: BACLOFEN 10MG TABLET PO SCH ×3 (04:00→21:04)
[2022-08-26] MEDS: GABAPENTIN 400MG CAPSULE PO SCH ×3 (06:36→21:12)
[2022-08-26 08:00] VITALS: BP 103/55
[2022-08-26] MEDS: POLYETHYLENE GLYCOL 3350 (17GM) 1 DOSE PACK PO SCH (09:47)
[2022-08-26] MEDS: DULOXETINE HCL 30MG DR CAPSULE PO SCH (09:47)
[2022-08-26] MEDS: APIXABAN 2.5 MG TABLET PO SCH ×2 (09:47→18:05)
[2022-08-26] MEDS: MORPHINE SULFATE 15MG TABLET SR PO SCH ×2 (09:48→21:05)
[2022-08-26] MEDS: FUROSEMIDE 20MG TABLET PO SCH ×2 (09:48→18:05)
[2022-08-26] MEDS: TOPIRAMATE 100MG TABLET PO SCH ×2 (09:48→18:05)
[2022-08-26] MEDS: LAMOTRIGINE 25MG TABLET PO SCH (09:48)
[2022-08-26] MEDS: SULFAMETHOXAZOLE/TRIMETHOPRIM 800/160MG TABLET PO SCH ×2 (09:48→21:04)
[2022-08-26 12:00] VITALS: BP 107/59
[2022-08-26 16:00] VITALS: BP 112/64
[2022-08-26] MEDS: OXYCODONE HCL/ACETAMINOPHEN 5/325MG TABLET PO PRN (18:08)
[2022-08-26 20:00] VITALS: BP 118/61
[2022-08-26] MEDS: DOCUSATE SODIUM 100MG CAPSULE PO PRN (21:04)
[2022-08-26] MEDS: ATORVASTATIN CALCIUM 20MG TABLET PO SCH (21:04)
[2022-08-27] VITALS: BP 114/57
[2022-08-27 04:00] VITALS: BP 129/68
[2022-08-27] MEDS: GABAPENTIN 400MG CAPSULE PO SCH ×3 (05:11→21:03)
[2022-08-27] MEDS: BACLOFEN 10MG TABLET PO SCH ×3 (05:11→21:03)
[2022-08-27 08:00] VITALS: BP 106/62
[2022-08-27] MEDS: SULFAMETHOXAZOLE/TRIMETHOPRIM 800/160MG TABLET PO SCH ×2 (08:16→21:03)
[2022-08-27] MEDS: LAMOTRIGINE 25MG TABLET PO SCH (08:16)
[2022-08-27] MEDS: POLYETHYLENE GLYCOL 3350 (17GM) 1 DOSE PACK PO SCH (08:16)
[2022-08-27] MEDS: TOPIRAMATE 100MG TABLET PO SCH ×2 (08:16→17:30)
[2022-08-27] MEDS: APIXABAN 2.5 MG TABLET PO SCH ×2 (08:17→17:30)
[2022-08-27] MEDS: MORPHINE SULFATE 15MG TABLET SR PO SCH ×2 (08:17→21:04)
[2022-08-27] MEDS: DULOXETINE HCL 30MG DR CAPSULE PO SCH (08:17)
[2022-08-27] MEDS: FUROSEMIDE 20MG TABLET PO SCH ×2 (08:17→17:30)
[2022-08-27] MEDS: CLOTRIMAZOLE 1% CREAM 15GM TOP SCH (08:18)
[2022-08-27 12:00] VITALS: BP 138/90
[2022-08-27 16:35] VITALS: BP 101/54
[2022-08-27 20:00] VITALS: BP 95/50
[2022-08-27] MEDS: DOCUSATE SODIUM 100MG CAPSULE PO PRN (21:05)
[2022-08-27] MEDS: ATORVASTATIN CALCIUM 20MG TABLET PO SCH (21:05)
[2022-08-28] VITALS: BP 108/58
[2022-08-28 04:00] VITALS: BP 115/60
[2022-08-28] MEDS: GABAPENTIN 400MG CAPSULE PO SCH ×3 (05:22→21:41)
[2022-08-28] MEDS: BACLOFEN 10MG TABLET PO SCH ×3 (05:22→20:46)
[2022-08-28 08:00] VITALS: BP 108/54
[2022-08-28 08:44] LABS: BASOPHILS % 0.3 % (0.0-2.0); EOSINOPHILS % 2.3 % (0.0-5.0); HEMATOCRIT. 32.6 % (36.0-48.0); HEMOGLOBIN. 10.1 g/dL (12.0-16.0); LYMPHOCYTES % 34.5 % (20.0-50.0); MEAN CORPUSCULAR HEMOGLOBIN 26.9 pg (28.0-32.0); MEAN CORPUSCULAR VOLUME 87.2 fL (81.0-99.0); MEAN PLATELET VOLUME 10.7 fl (7.4-10.4); MONOCYTES % 7.9 % (2.0-8.0); PLATELET 216 x1000/uL (130-400); RED BLOOD CELL COUNT 3.74 mill/uL (4.2-5.4); RED CELL DISTRIBUTION WIDTH 17.8 % (11.6-14.6)
[2022-08-28 09:02] LABS: CHLORIDE 106 mEq/L (98-107)
[2022-08-28] MEDS: APIXABAN 2.5 MG TABLET PO SCH ×2 (11:03→17:20)
[2022-08-28] MEDS: TOPIRAMATE 100MG TABLET PO SCH ×2 (11:03→17:20)
[2022-08-28] MEDS: MORPHINE SULFATE 15MG TABLET SR PO SCH ×2 (11:03→21:09)
[2022-08-28] MEDS: DULOXETINE HCL 30MG DR CAPSULE PO SCH (11:04)
[2022-08-28] MEDS: FUROSEMIDE 20MG TABLET PO SCH ×2 (11:04→17:20)
[2022-08-28] MEDS: SULFAMETHOXAZOLE/TRIMETHOPRIM 800/160MG TABLET PO SCH ×2 (11:04→21:07)
[2022-08-28] MEDS: POLYETHYLENE GLYCOL 3350 (17GM) 1 DOSE PACK PO SCH (11:05)
[2022-08-28] MEDS: LAMOTRIGINE 25MG TABLET PO SCH (11:05)
[2022-08-28] MEDS ORDERED: BACL20TA PO (11:21)
[2022-08-28 12:00] VITALS: BP 138/71
[2022-08-28 16:00] VITALS: BP 139/62
[2022-08-28] MEDS: CLOTRIMAZOLE 1% CREAM 15GM TOP SCH (17:19)
[2022-08-28 20:00] VITALS: BP 123/58
[2022-08-28] MEDS: ATORVASTATIN CALCIUM 20MG TABLET PO SCH (21:06)
[2022-08-29] MEDS: BACLOFEN 10MG TABLET PO SCH ×3 (06:02→21:43)
[2022-08-29] MEDS: GABAPENTIN 400MG CAPSULE PO SCH ×3 (06:03→21:43)
[2022-08-29 08:00] VITALS: BP 120/69
[2022-08-29] MEDS: DULOXETINE HCL 30MG DR CAPSULE PO SCH (09:09)
[2022-08-29] MEDS: APIXABAN 2.5 MG TABLET PO SCH ×2 (09:09→18:47)
[2022-08-29] MEDS: SULFAMETHOXAZOLE/TRIMETHOPRIM 800/160MG TABLET PO SCH ×2 (09:09→21:54)
[2022-08-29] MEDS: FUROSEMIDE 20MG TABLET PO SCH ×2 (09:09→18:47)
[2022-08-29] MEDS: MORPHINE SULFATE 15MG TABLET SR PO SCH ×2 (09:10→21:54)
[2022-08-29] MEDS: TOPIRAMATE 100MG TABLET PO SCH ×2 (09:10→18:47)
[2022-08-29] MEDS: LAMOTRIGINE 25MG TABLET PO SCH (09:10)
[2022-08-29] MEDS: POLYETHYLENE GLYCOL 3350 (17GM) 1 DOSE PACK PO SCH (09:10)
[2022-08-29] MEDS: CLOTRIMAZOLE 1% CREAM 15GM TOP SCH (09:11)
[2022-08-29 12:00] VITALS: BP 101/49
[2022-08-29] MEDS: OXYCODONE HCL/ACETAMINOPHEN 5/325MG TABLET PO PRN (14:20)
[2022-08-29 15:54] VITALS: BP 110/52
[2022-08-29] MEDS: ATORVASTATIN CALCIUM 20MG TABLET PO SCH (21:54)
[2022-08-30] VITALS: BP 112/56
[2022-08-30 04:00] VITALS: BP 115/66
[2022-08-30] MEDS: BACLOFEN 10MG TABLET PO SCH ×3 (04:53→20:35)
[2022-08-30] MEDS: GABAPENTIN 400MG CAPSULE PO SCH ×2 (05:06→13:50)
[2022-08-30 08:00] VITALS: BP 86/48
[2022-08-30] MEDS: CLOTRIMAZOLE 1% CREAM 15GM TOP SCH (09:00)
[2022-08-30] MEDS: SULFAMETHOXAZOLE/TRIMETHOPRIM 800/160MG TABLET PO SCH (10:38)
[2022-08-30] MEDS: APIXABAN 2.5 MG TABLET PO SCH ×2 (10:38→18:40)
[2022-08-30] MEDS: DULOXETINE HCL 30MG DR CAPSULE PO SCH (10:38)
[2022-08-30] MEDS: TOPIRAMATE 100MG TABLET PO SCH ×2 (10:38→18:40)
[2022-08-30] MEDS: FUROSEMIDE 20MG TABLET PO SCH ×2 (10:38→18:40)
[2022-08-30] MEDS: LAMOTRIGINE 25MG TABLET PO SCH (10:39)
[2022-08-30] MEDS: OXYCODONE HCL/ACETAMINOPHEN 5/325MG TABLET PO PRN ×3 (10:39→20:44)
[2022-08-30] MEDS: POLYETHYLENE GLYCOL 3350 (17GM) 1 DOSE PACK PO SCH (10:40)
[2022-08-30 12:00] VITALS: BP 124/70
[2022-08-30 16:00] VITALS: BP 110/75
[2022-08-30 20:00] VITALS: BP 108/56
[2022-08-30] MEDS: ATORVASTATIN CALCIUM 20MG TABLET PO SCH (20:35)
[2022-08-30] MEDS: MORPHINE SULFATE 15MG TABLET SR PO SCH (20:54)
[2022-08-31 04:00] VITALS: BP 139/75
[2022-08-31] MEDS: OXYCODONE HCL/ACETAMINOPHEN 5/325MG TABLET PO PRN ×2 (04:17→13:35)
[2022-08-31] MEDS: BACLOFEN 10MG TABLET PO SCH ×3 (04:19→21:50)
[2022-08-31 08:00] VITALS: BP 117/72
[2022-08-31] MEDS: POLYETHYLENE GLYCOL 3350 (17GM) 1 DOSE PACK PO SCH (09:00)
[2022-08-31] MEDS: DULOXETINE HCL 20MG DR CAPSULE PO SCH (09:54)
[2022-08-31] MEDS: APIXABAN 2.5 MG TABLET PO SCH ×2 (09:54→17:27)
[2022-08-31] MEDS: FUROSEMIDE 20MG TABLET PO SCH ×2 (09:55→17:27)
[2022-08-31] MEDS: TOPIRAMATE 100MG TABLET PO SCH ×2 (09:55→17:27)
[2022-08-31] MEDS: LAMOTRIGINE 25MG TABLET PO SCH (09:55)
[2022-08-31] MEDS: MORPHINE SULFATE 15MG TABLET SR PO SCH ×2 (09:56→21:51)
[2022-08-31] MEDS: CLOTRIMAZOLE 1% CREAM 15GM TOP SCH (09:57)
[2022-08-31 12:00] VITALS: BP 108/67
[2022-08-31 16:00] VITALS: BP 103/56
[2022-08-31 20:00] VITALS: BP 138/71
[2022-08-31] MEDS: ATORVASTATIN CALCIUM 20MG TABLET PO SCH (21:50)
[2022-09-01] MEDS: BACLOFEN 10MG TABLET PO SCH ×3 (05:15→20:42)
[2022-09-01 08:00] VITALS: BP_SYST 115; BP_SYST 141; BP_DIAS 60; BP_DIAS 81
[2022-09-01] MEDS: CLOTRIMAZOLE 1% CREAM 15GM TOP SCH (09:00)
[2022-09-01] MEDS: FUROSEMIDE 20MG TABLET PO SCH ×2 (09:19→17:07)
[2022-09-01] MEDS: DULOXETINE HCL 20MG DR CAPSULE PO SCH (09:19)
[2022-09-01] MEDS: MORPHINE SULFATE 15MG TABLET SR PO SCH ×2 (09:20→20:42)
[2022-09-01] MEDS: LAMOTRIGINE 25MG TABLET PO SCH (09:20)
[2022-09-01] MEDS: POLYETHYLENE GLYCOL 3350 (17GM) 1 DOSE PACK PO SCH (09:20)
[2022-09-01] MEDS: APIXABAN 2.5 MG TABLET PO SCH ×2 (09:20→17:07)
[2022-09-01 12:00] VITALS: BP 129/85
[2022-09-01] MEDS: OXYCODONE HCL/ACETAMINOPHEN 5/325MG TABLET PO PRN (14:00)
[2022-09-01 16:00] VITALS: BP 135/74
[2022-09-01 20:00] VITALS: BP 109/59
[2022-09-01] MEDS: ATORVASTATIN CALCIUM 20MG TABLET PO SCH (20:42)
[2022-09-02] MEDS: BACLOFEN 10MG TABLET PO SCH ×3 (05:37→22:11)
[2022-09-02] MEDS: OXYCODONE HCL/ACETAMINOPHEN 5/325MG TABLET PO PRN ×2 (05:38→14:17)
[2022-09-02 08:00] VITALS: BP 108/43
[2022-09-02] MEDS: DOCUSATE SODIUM 100MG CAPSULE PO SCH (09:19)
[2022-09-02] MEDS: FUROSEMIDE 20MG TABLET PO SCH ×2 (09:19→17:56)
[2022-09-02] MEDS: DULOXETINE HCL 20MG DR CAPSULE PO SCH (09:19)
[2022-09-02] MEDS: LAMOTRIGINE 25MG TABLET PO SCH (09:19)
[2022-09-02] MEDS: GABAPENTIN 400MG CAPSULE PO SCH ×3 (09:19→17:56)
[2022-09-02] MEDS: APIXABAN 2.5 MG TABLET PO SCH ×2 (09:19→17:58)
[2022-09-02] MEDS: POLYETHYLENE GLYCOL 3350 (17GM) 1 DOSE PACK PO SCH (09:19)
[2022-09-02] MEDS: MORPHINE SULFATE 15MG TABLET SR PO SCH ×2 (09:20→22:12)
[2022-09-02] MEDS: CLOTRIMAZOLE 1% CREAM 15GM TOP SCH (09:21)
[2022-09-02 12:00] VITALS: BP 120/68
[2022-09-02 16:00] VITALS: BP 126/66
[2022-09-02] MEDS: ATORVASTATIN CALCIUM 20MG TABLET PO SCH (22:11)
[2022-09-03] VITALS: BP 118/56
[2022-09-03] MEDS: BACLOFEN 10MG TABLET PO SCH ×3 (04:00→21:51)
[2022-09-03] MEDS: GABAPENTIN 400MG CAPSULE PO SCH ×3 (10:32→18:07)
[2022-09-03] MEDS: DOCUSATE SODIUM 100MG CAPSULE PO SCH (10:32)
[2022-09-03] MEDS: APIXABAN 2.5 MG TABLET PO SCH ×2 (10:32→18:06)
[2022-09-03] MEDS: LAMOTRIGINE 25MG TABLET PO SCH (10:32)
[2022-09-03] MEDS: POLYETHYLENE GLYCOL 3350 (17GM) 1 DOSE PACK PO SCH (10:32)
[2022-09-03] MEDS: DULOXETINE HCL 20MG DR CAPSULE PO SCH (10:33)
[2022-09-03] MEDS: FUROSEMIDE 20MG TABLET PO SCH ×2 (10:43→18:06)
[2022-09-03] MEDS: MORPHINE SULFATE 15MG TABLET SR PO SCH ×2 (10:43→21:51)
[2022-09-03] MEDS: CLOTRIMAZOLE 1% CREAM 15GM TOP SCH (10:44)
[2022-09-03] MEDS: OXYCODONE HCL/ACETAMINOPHEN 5/325MG TABLET PO PRN (12:00)
[2022-09-03 20:00] VITALS: BP 109/63
[2022-09-03] MEDS: ATORVASTATIN CALCIUM 20MG TABLET PO SCH (21:51)
[2022-09-04] VITALS: BP 136/64
[2022-09-04] MEDS: OXYCODONE HCL/ACETAMINOPHEN 5/325MG TABLET PO PRN ×3 (02:57→13:15)
[2022-09-04 04:00] VITALS: BP 114/58
[2022-09-04] MEDS: BACLOFEN 10MG TABLET PO SCH ×3 (07:08→21:15)
[2022-09-04 08:00] VITALS: BP 107/52
[2022-09-04] MEDS: CLOTRIMAZOLE 1% CREAM 15GM TOP SCH (09:00)
[2022-09-04] MEDS: DULOXETINE HCL 20MG DR CAPSULE PO SCH (10:32)
[2022-09-04] MEDS: LAMOTRIGINE 25MG TABLET PO SCH (10:32)
[2022-09-04] MEDS: POLYETHYLENE GLYCOL 3350 (17GM) 1 DOSE PACK PO SCH (10:32)
[2022-09-04] MEDS: FUROSEMIDE 20MG TABLET PO SCH ×2 (10:33→16:52)
[2022-09-04] MEDS: DOCUSATE SODIUM 100MG CAPSULE PO SCH (10:33)
[2022-09-04] MEDS: APIXABAN 2.5 MG TABLET PO SCH ×2 (10:33→16:52)
[2022-09-04] MEDS: MORPHINE SULFATE 15MG TABLET SR PO SCH ×2 (10:33→21:19)
[2022-09-04] MEDS: GABAPENTIN 400MG CAPSULE PO SCH ×3 (10:47→16:51)
[2022-09-04 12:00] VITALS: BP 129/70
[2022-09-04] MEDS ORDERED: OXYCODONE HCL/ACETAMINOPHEN 5/325MG TABLET PO ONE (13:45)
[2022-09-04] MEDS ORDERED: OXYCODONE HCL/ACETAMINOPHEN 5/325MG TABLET PO NR (14:15)
[2022-09-04 16:00] VITALS: BP 134/76
[2022-09-04 20:40] VITALS: BP 119/69
[2022-09-04] MEDS: ATORVASTATIN CALCIUM 20MG TABLET PO SCH (21:15)
[2022-09-05] MEDS: BACLOFEN 10MG TABLET PO SCH ×3 (04:00→20:13)
[2022-09-05 08:00] VITALS: BP 121/54
[2022-09-05 08:43] LABS: HEMATOCRIT 31.3 % (36.0-48.0); HEMOGLOBIN 9.8 g/dL (12.0-16.0); MEAN CORPUSCULAR HEMOGLOBIN 26.8 pg (28.0-32.0); MEAN CORPUSCULAR VOLUME 85.4 fL (81.0-99.0); PLATELET 257 x1000/uL (130-400); RED BLOOD CELL COUNT 3.66 mill/uL (4.2-5.4); RED CELL DISTRIBUTION WIDTH 17.6 % (11.6-14.6)
[2022-09-05 08:50] LABS: CHLORIDE 105 mEq/L (98-107)
[2022-09-05] MEDS: CLOTRIMAZOLE 1% CREAM 15GM TOP SCH (09:00)
[2022-09-05] MEDS: DOCUSATE SODIUM 100MG CAPSULE PO SCH (10:01)
[2022-09-05] MEDS: DULOXETINE HCL 20MG DR CAPSULE PO SCH (10:01)
[2022-09-05] MEDS: APIXABAN 2.5 MG TABLET PO SCH ×2 (10:01→18:01)
[2022-09-05] MEDS: MORPHINE SULFATE 15MG TABLET SR PO SCH ×2 (10:13→20:15)
[2022-09-05] MEDS: LAMOTRIGINE 25MG TABLET PO SCH (10:13)
[2022-09-05] MEDS: GABAPENTIN 400MG CAPSULE PO SCH ×3 (10:13→18:07)
[2022-09-05] MEDS: POLYETHYLENE GLYCOL 3350 (17GM) 1 DOSE PACK PO SCH (10:14)
[2022-09-05] MEDS: FUROSEMIDE 20MG TABLET PO SCH ×2 (10:14→18:01)
[2022-09-05] MEDS: OXYCODONE HCL/ACETAMINOPHEN 5/325MG TABLET PO PRN (13:23)
[2022-09-05] MEDS ORDERED: NALOXONE HCL 0.4MG/ML VIAL IV PRN (19:15)
[2022-09-05 20:00] VITALS: BP 110/62
[2022-09-05] MEDS: ATORVASTATIN CALCIUM 20MG TABLET PO SCH (20:11)
[2022-09-05] MEDS: HYDROCORTISONE 1% CREAM 30GM TOP SCH (20:15)
[2022-09-05] MEDS ORDERED: DIPHENHYDRAMINE 50MG CAPSULE PO PRN (21:15)
[2022-09-06] VITALS: BP 125/77
[2022-09-06 04:00] VITALS: BP 105/59
[2022-09-06] MEDS: BACLOFEN 10MG TABLET PO SCH ×3 (04:09→21:29)
[2022-09-06] MEDS: OXYCODONE HCL/ACETAMINOPHEN 5/325MG TABLET PO PRN ×2 (04:46→08:27)
[2022-09-06 08:00] VITALS: BP 144/62
[2022-09-06] MEDS: HYDROCORTISONE 1% CREAM 30GM TOP SCH ×2 (09:00→21:48)
[2022-09-06] MEDS: CLOTRIMAZOLE 1% CREAM 15GM TOP SCH (09:00)
[2022-09-06] MEDS: GABAPENTIN 400MG CAPSULE PO SCH ×3 (10:47→15:02)
[2022-09-06] MEDS: DOCUSATE SODIUM 100MG CAPSULE PO SCH (10:47)
[2022-09-06] MEDS: LAMOTRIGINE 25MG TABLET PO SCH (10:48)
[2022-09-06] MEDS: FUROSEMIDE 20MG TABLET PO SCH ×2 (10:48→17:31)
[2022-09-06] MEDS: APIXABAN 2.5 MG TABLET PO SCH ×2 (10:48→17:00)
[2022-09-06] MEDS: POLYETHYLENE GLYCOL 3350 (17GM) 1 DOSE PACK PO SCH (10:49)
[2022-09-06] MEDS: DULOXETINE HCL 20MG DR CAPSULE PO SCH (10:49)
[2022-09-06] MEDS: MORPHINE SULFATE 15MG TABLET SR PO SCH ×2 (10:51→21:47)
[2022-09-06 12:00] VITALS: BP 132/80
[2022-09-06 16:00] VITALS: BP 134/68
[2022-09-06 20:00] VITALS: BP 112/54
[2022-09-06] MEDS: ATORVASTATIN CALCIUM 20MG TABLET PO SCH (21:29)
[2022-09-07] VITALS: BP 102/70
[2022-09-07] MEDS: BACLOFEN 10MG TABLET PO SCH ×3 (05:22→20:50)
[2022-09-07 08:00] VITALS: BP 117/59
[2022-09-07] MEDS: GABAPENTIN 400MG CAPSULE PO SCH ×3 (10:34→18:05)
[2022-09-07] MEDS: LAMOTRIGINE 25MG TABLET PO SCH (10:34)
[2022-09-07] MEDS: FUROSEMIDE 20MG TABLET PO SCH ×2 (10:35→18:04)
[2022-09-07] MEDS: DOCUSATE SODIUM 100MG CAPSULE PO SCH (10:35)
[2022-09-07] MEDS: DULOXETINE HCL 20MG DR CAPSULE PO SCH (10:35)
[2022-09-07] MEDS: APIXABAN 2.5 MG TABLET PO SCH ×2 (10:35→18:05)
[2022-09-07] MEDS: MORPHINE SULFATE 15MG TABLET SR PO SCH ×2 (10:36→22:00)
[2022-09-07] MEDS: POLYETHYLENE GLYCOL 3350 (17GM) 1 DOSE PACK PO SCH (10:44)
[2022-09-07 12:00] VITALS: BP 116/71
[2022-09-07] MEDS: HYDROCORTISONE 1% CREAM 30GM TOP SCH ×2 (14:15→22:00)
[2022-09-07] MEDS: CLOTRIMAZOLE 1% CREAM 15GM TOP SCH (14:15)
[2022-09-07] MEDS: OXYCODONE HCL/ACETAMINOPHEN 5/325MG TABLET PO PRN (14:49)
[2022-09-07 16:00] VITALS: BP 109/48
[2022-09-07 20:00] VITALS: BP 136/70
[2022-09-07] MEDS: ATORVASTATIN CALCIUM 20MG TABLET PO SCH (22:30)
[2022-09-08] VITALS: BP 96/58
[2022-09-08 04:00] VITALS: BP 100/51
[2022-09-08] MEDS: BACLOFEN 10MG TABLET PO SCH ×3 (04:30→21:17)
[2022-09-08] MEDS: HYDROCORTISONE 1% CREAM 30GM TOP SCH ×2 (09:00→21:00)
[2022-09-08] MEDS: CLOTRIMAZOLE 1% CREAM 15GM TOP SCH (09:00)
[2022-09-08] MEDS: NYSTATIN 100,000 UNITS/GM OINT 15GM TOP SCH ×2 (09:00→11:19)
[2022-09-08] MEDS: POLYETHYLENE GLYCOL 3350 (17GM) 1 DOSE PACK PO SCH (11:17)
[2022-09-08] MEDS: APIXABAN 2.5 MG TABLET PO SCH ×2 (11:17→17:00)
[2022-09-08] MEDS: DOCUSATE SODIUM 100MG CAPSULE PO SCH (11:17)
[2022-09-08] MEDS: MORPHINE SULFATE 15MG TABLET SR PO SCH ×2 (11:18→21:18)
[2022-09-08] MEDS: FUROSEMIDE 20MG TABLET PO SCH ×2 (11:18→17:00)
[2022-09-08] MEDS: GABAPENTIN 400MG CAPSULE PO SCH ×3 (11:18→17:00)
[2022-09-08] MEDS: DULOXETINE HCL 20MG DR CAPSULE PO SCH (11:18)
[2022-09-08] MEDS: LAMOTRIGINE 25MG TABLET PO SCH (11:19)
[2022-09-08 12:00] VITALS: BP 107/59
[2022-09-08] MEDS: OXYCODONE HCL/ACETAMINOPHEN 5/325MG TABLET PO PRN ×2 (12:53→23:26)
[2022-09-08] MEDS: NYSTATIN POWDER 15GM TOP SCH ×2 (14:00→23:25)
[2022-09-08] MEDS ORDERED: *PATIENT'S OWN MEDICATION STORAGE XX SCH (17:15)
[2022-09-08 20:00] VITALS: BP 122/72
[2022-09-08] MEDS: ATORVASTATIN CALCIUM 20MG TABLET PO SCH (21:15)
[2022-09-09] MEDS: OXYCODONE HCL/ACETAMINOPHEN 5/325MG TABLET PO PRN ×2 (03:34→15:42)
[2022-09-09] MEDS: BACLOFEN 10MG TABLET PO SCH ×2 (05:10→15:23)
[2022-09-09] MEDS: NYSTATIN POWDER 15GM TOP SCH ×2 (06:25→13:54)
[2022-09-09 08:00] VITALS: BP 151/81
[2022-09-09] MEDS: CLOTRIMAZOLE 1% CREAM 15GM TOP SCH (09:00)
[2022-09-09] MEDS: HYDROCORTISONE 1% CREAM 30GM TOP SCH (09:00)
[2022-09-09] MEDS: GABAPENTIN 400MG CAPSULE PO SCH ×2 (09:37→15:23)
[2022-09-09] MEDS: APIXABAN 2.5 MG TABLET PO SCH (09:38)
[2022-09-09] MEDS: DOCUSATE SODIUM 100MG CAPSULE PO SCH (09:38)
[2022-09-09] MEDS: FUROSEMIDE 20MG TABLET PO SCH (09:38)
[2022-09-09] MEDS: DULOXETINE HCL 20MG DR CAPSULE PO SCH (09:38)
[2022-09-09] MEDS: POLYETHYLENE GLYCOL 3350 (17GM) 1 DOSE PACK PO SCH (09:38)
[2022-09-09] MEDS: MORPHINE SULFATE 15MG TABLET SR PO SCH (09:38)
[2022-09-09] MEDS: LAMOTRIGINE 25MG TABLET PO SCH (09:39)
[2022-09-09 12:00] VITALS: BP 147/88
[2022-09-09 13:00] VITALS: BP 127/70
[2022-09-09 15:42] VITALS: BP 127/70
== END 2022-09-09 17:50 | DRG 53 ==
LOC: ER 19:32 → EDBEDREQTM 08-02 11:52 → EDBEDREQ 08-02 11:52 → ER 08-02 22:12 → 7EST 08-02 23:43 → UNDODISIN 08-05 17:00 → 5WST 08-06 15:58
PROVIDERS: ADMIT Internal Medicine; ATTEND Internal Medicine
PROC: 02HV33Z Insertion of Infusion Device into Superior Vena Cava, Percutaneous Approach (ICD-10-PCS; principal; 2022-08-05)
PROC: B518ZZA Fluoroscopy of Superior Vena Cava, Guidance (ICD-10-PCS; 2022-08-05)
PROC: B548ZZA Ultrasonography of Superior Vena Cava, Guidance (ICD-10-PCS; 2022-08-05)
PROC: 4A00X4Z Measurement of Central Nervous Electrical Activity, External Approach (ICD-10-PCS; 2022-08-20)
PROC: 0PS5XZZ Reposition Right Scapula, External Approach (ICD-10-PCS; 2022-08-24)
PROC: 0JBR0ZZ Excision of Left Foot Subcutaneous Tissue and Fascia, Open Approach (ICD-10-PCS; 2022-08-27)
DX: G40.909 Epilepsy, unspecified, not intractable, without status epilepticus (principal); L89.614 Pressure ulcer of right heel, stage 4; E44.1 Mild protein-calorie malnutrition; G82.20 Paraplegia, unspecified; S91.312A Laceration without foreign body, left foot, initial encounter; S43.004A Unspecified dislocation of right shoulder joint, initial encounter; Z68.43 Body mass index [BMI] 50.0-59.9, adult; J44.9 Chronic obstructive pulmonary disease, unspecified; E66.01 Morbid (severe) obesity due to excess calories; L08.9 Local infection of the skin and subcutaneous tissue, unspecified; B95.62 Methicillin resistant Staphylococcus aureus infection as the cause of diseases classified elsewhere; F41.9 Anxiety disorder, unspecified; Z20.822 Contact with and (suspected) exposure to COVID-19; G89.29 Other chronic pain; N31.9 Neuromuscular dysfunction of bladder, unspecified; Z74.01 Bed confinement status; Z88.8 Allergy status to other drugs, medicaments and biological substances; Z79.899 Other long term (current) drug therapy; Z79.01 Long term (current) use of anticoagulants; X58.XXXA Exposure to other specified factors, initial encounter; Y93.9 Activity, unspecified; Y92.89 Other specified places as the place of occurrence of the external cause; Y99.9 Unspecified external cause status
CPT/HCPCS: 36415; 36573; 73030; 73130; 80048; 80053; 80202; 81003; 82542; 84145; 85025; 85027; 87070; 87077; 87186; 87426; 93923; 93971; 95816; 97110; 97162; 97164; 97166; 97168; 97530; 97535; 99283; A4565; A6261; C1725; C1893; J0330; J0696; J1885; J2060; J2250; J2704; J3370; J3490; J7060; L3670; Q0163; A4315; A5200